=== PATIENT | female | born 1985 | race Caucasian/White ===

== ENCOUNTER 2021-10-09 08:56 | Outpatient (CLI) | payer BC ==
[2021-10-09 10:01] LABS: BASOPHILS % (AUTO) 1.3 % (0-1); EOSINOPHILS # (AUTO) 0.1 X10'3 (0-0.9); EOSINOPHILS % (AUTO) 3.6 % (0-6); HEMOGLOBIN 11.7 g/dl (12.0-16.0); LYMPHOCYTES # (AUTO) 1.2 X10'3 (1.1-4.8); LYMPHOCYTES % (AUTO) 39.6 % (21-51); MEAN CORPUSCULAR HEMOGLOBIN 25.9 PG (27.0-31.0); MEAN CORPUSCULAR HGB CONC 32.4 g/dL (33.0-36.5); MEAN CORPUSCULAR VOLUME 79.9 FL (78-98); MONOCYTES # (AUTO) 0.4 X10'3 (0-0.9); MONOCYTES % (AUTO) 12.7 % (2-12); NEUTROPHILS # (AUTO) 1.3 X10'3 (1.8-7.7); NEUTROPHILS % (AUTO) 42.8 % (42-75); PLATELET COUNT 221 X10'3 (140-440); RED BLOOD COUNT 4.51 X10'6 (4.20-5.60); RED CELL DISTRIBUTION WIDTH 13.8 % (11.5-14.5)
[2021-10-09 11:01] LABS: ALANINE AMINOTRANSFERASE 30 U/L (12-78); ALBUMIN 3.6 G/DL (3.4-5.0); ALBUMIN/GLOBULIN RATIO 0.9 (1.1-1.5); ALKALINE PHOSPHATASE 57 IU/L (46-116); ANION GAP 10 (8-16); ASPARTATE AMINO TRANSFERASE 19 U/L (10-37); BILIRUBIN,TOTAL 0.3 MG/DL (0.1-1.0); BLOOD UREA NITROGEN 11 MG/DL (7-18); BUN/CREATININE RATIO 16.7 (6.6-38.0); CALCIUM 8.9 MG/DL (8.5-10.1); CHLORIDE 104 MMOL/L (99-107); CHOL/HDL RATIO 2.5 (0.00-4.99); CHOLESTEROL 158 MG/DL (0-200); CREATININE 0.66 MG/DL (0.40-0.90); GLUCOSE 103 MG/DL (70-104); HDL CHOLESTEROL 64 MG/DL (35-60); LDL CHOLESTEROL 83 MG/DL (50-100); POTASSIUM 3.7 MMOL/L (3.5-5.1); SODIUM 139 MMOL/L (135-145); TOTAL CARBON DIOXIDE 24.9 MMOL/L (24-32); TOTAL PROTEIN 7.7 G/DL (6.4-8.2); TRIGLYCERIDES 44 MG/DL (20-135); eGFR > 90 ML/MIN
[2021-10-09 11:55] LABS: MICROCYTOSIS 1+; PLATELET ESTIMATE NORMAL; TOTAL CELLS COUNTED 100
[2021-10-09 11:56] LABS: BURR CELLS FEW; ELLIPTOCYTES 1+; POIKILOCYTOSIS 1+; SCHISTOCYTES FEW
== END 2021-10-09 23:59 | disposition home or self-care (01) ==
LOC: RAD 08:56
PROVIDERS: ATTEND Nurse Practitioner
DX: M51.37 Other intervertebral disc degeneration, lumbosacral region (principal); M89.38 Hypertrophy of bone, other site; F40.10 Social phobia, unspecified; G47.9 Sleep disorder, unspecified; E55.9 Vitamin D deficiency, unspecified; R60.0 Localized edema; Z76.89 Persons encountering health services in other specified circumstances; Z83.3 Family history of diabetes mellitus
CPT/HCPCS: 72110; 80053; 80061; 82306; 82607; 82746; 84439; 84443; 85007; 85025; 93971